=== PATIENT | female | born 1960 | race Caucasian/White ===

== ENCOUNTER 2019-05-30 19:33 | Emergency (ER) | payer OTHER, SELFPAY ==
[2019-05-30 19:38] VITALS: BP 161/103; PULSE 80; RESP 20; TEMP 36.7; O2SAT 98; BMI 45.5
--- NOTE | 2019-05-30 20:40 | ECG_ITS ---
Measurements Intervals [place] Rate: 76 P: 49 AR: 166 QRS: 66 QRSD: 96 T: 63 QT: 373 QTc: 419 SINUS RHYTHM Compared to ECG 11/28/2018 14:46:09 No significant changes Electronically Signed On 05-31-2019 20:22:03 [employer] by Ivet Griffith M.D. [id number]
[2019-05-30 21:30] LABS: Basophils % 0.3 %; Eosinophils # 0.1 10^3/uL (0.0-0.8); Eosinophils % 0.7 %; Hematocrit 43.8 % (37.0-47.0); Hemoglobin 13.8 g/dL (11.5-15.3); Lymphocytes # 2.6 10^3/uL (0.8-4.8); Lymphocytes % 25.5 %; Mean Corpuscular HGB Conc 31.5 g/dL (30.0-36.0); Mean Corpuscular Hemoglobin 29.1 pg (28.0-34.0); Mean Corpuscular Volume 92.2 fL (81-99); Mean Platelet Volume 10.2 fL (7.4-10.4); Monocytes # 0.7 10^3/uL (0.2-0.9); Monocytes % 6.4 %; Neutrophils # 6.8 10^3/uL (1.8-7.7); Neutrophils % 66.8 %; Nucleated Red Blood Cells % 0 %; Platelet Count 313 10^3/cmm (130-400); Red Blood Count 4.75 10^6/uL (4.1-5.3); Red Cell Distribution Width 12.5 % (12.1-15.1); White Blood Count 10.1 10^3/uL (4.0-10.0)
[2019-05-30 21:39] LABS: INR 0.94 (0.8-1.2)
[2019-05-30 21:45] LABS: Alanine Aminotransferase 19 U/L (0-33); Albumin Level 4.5 g/dL (3.5-5.2); Alkaline Phosphatase 91 IU/L (35-105); Anion Gap 15.8 (5-19); Aspartate Amino Transferase 18 U/L (0-32); Blood Urea Nitrogen 24 mg/dL (6-20); Calcium 10.4 mg/Dl (8.6-10.0); Carbon Dioxide 27 mmol/L (22-29); Chloride 98 mmol/L (98-107); Globulin 3.5 g/dL (1.3-4.6); Glomerular Filtration Rate 64.3 mL/min (90-130); Glucose 99 mg/dL (74-109); Lipase 47 U/L (13-60); Potassium 3.8 mmol/L (3.5-5.1); Sodium 137 mmol/L (136-145); Total Bilirubin 0.2 mg/dL (0.15-1.2)
[2019-05-30 21:56] LABS: Troponin(5th) Baseline 13 ng/mL (0-10)
--- NOTE | 2019-05-30 22:16 | ED_ITS ---
HPI - Chest Pain General: Chief Complaint: Chest Pain Stated Complaint: Chest pain Time Seen by Provider: 05/30/19 22:16 History of Present Illness: HPI narrative: Patient is a 51-year-old female comes to the ED with chest pain. She states chest pain started on Wednesday and is just gotten worse. Pain is in the central part of chest and increases in intensity when touched. She's had some mild nausea with chest pain. Patient states she was just recently diagnosed with bronchitis and was given an antibiotic and steroid prescription on Wednesday. Patient said she had some wheezing when she went to the doctor last WednesdayMay 26. Denies shortness of breath, fever, upper respiratory symptoms, abdominal pain, vomiting, dysuria, hematuria, diarrhea, constipation, blood in the stool. Review of Systems General: Reports: 10 or more systems reviewed and unremarkable except in HPI and below PFSH ED PFSH: Statuses (acute, chronic, etc) shown below reflect problem list status as previously entered and may not be historically accurate Social History Smoking and tobacco status: never smoked Physical Exam Const: COMMON NORMALS: oriented x3 HENMT: COMMON NORMALS: normocephalic HEAD & SCALP: normocephalic MOUTH: oral and palatal mucosa normal THROAT: posterior oropharynx normal and uvula midline Neck/C-Spine: COMMON NORMALS: supple GENERAL: Yes normal visual inspection Chest: CHEST: Yes tenderness sternum Resp: COMMON NORMALS: normal respiratory effort, no retractions, no use of accessory muscles and clear to auscultation bilaterally AUSCULTATION: clear to auscultation bilaterally Cardio: COMMON NORMALS: regular rate, regular rhythm, S1 normal heart sound, S2 normal heart sound, no gallops, no clicks, no murmurs and peripheral pulses 2+ throughout RATE: regular rate RHYTHM: regular rhythm HEART SOUNDS: S1 normal and S2 normal PERIPHERAL PULSES: pulses 2+ throughout GI: COMMON NORMALS: normal to inspection, nondistended, normoactive bowel sounds, soft to palpation, non-tender and no masses PALPATION: Yes soft : COMMON NORMALS: Yes no CVA tenderness BLADDER/KIDNEY EXAM: Yes no CVA tenderness Back/Pelvis: COMMON NORMALS: no CVA tenderness Extremity: COMMON NORMALS: normal to inspection Neuro: COMMON NORMALS: oriented x3 and moves all extremities Skin: COMMON NORMALS: no rashes or lesions noted GENERAL SKIN EXAM: no rashes or lesions noted Course ED course: Patient's HEART score is 2. Pt falls in the low score 0-3 range. Vital Signs: Vital signs: Vital Signs Temperature 97.8 F 05/30/19 22:42 Pulse Rate 74 05/31/19 01:06 Respiratory Rate 16 05/31/19 01:06 Blood Pressure 143/79 05/31/19 01:06 Pulse Oximetry 97 05/31/19 01:06 MDM - Chest Pain Lab Data: Attestation: I reviewed the patient's lab results. Labs: Lab Results 05/30/19 05/30/19 05/30/19 Range/Units 21:21 21:21 21:21 WBC 10.1 H (4.0-10.0) 10^3/ uL RBC 4.75 (4.1-5.3) 10^6/u L Hgb 13.8 (11.5-15.3) g/dL Hct 43.8 (37.0-47.0) % MCV 92.2 (81-99) fL MCH 29.1 (28.0-34.0) pg MCHC 31.5 (30.0-36.0) g/dL RDW 12.5 (12.1-15.1) % Plt Count 313 (130-400) 10^3/c mm MPV 10.2 (7.4-10.4) fL Neut % (Auto) 66.8 % Lymph % (Auto) 25.5 % Craven % (Auto) 6.4 % Eos % (Auto) 0.7 % Baso % (Auto) 0.3 % Neut # (Auto) 6.8 (1.8-7.7) 10^3/u L Lymph # (Auto) 2.6 (0.8-4.8) 10^3/u L Craven # (Auto) 0.7 (0.2-0.9) 10^3/u L Eos # (Auto) 0.1 (0.0-0.8) 10^3/u L Baso # (Auto) 0.0 (0.0-0.1) 10^3/u L Nucleated RBC % (a uto) 0 % Nucleated RBCs # 0.0 /100WBC PT 12.80 (10.5-13.3) SECO NDS INR 0.94 (0.8-1.2) Sodium 137 (136-145) mmol/L Potassium 3.8 (3.5-5.1) mmol/L Chloride 98 (98-107) mmol/L Carbon Dioxide 27 (22-29) mmol/L Anion Gap 15.8 (5-19) BUN 24 H (6-20) mg/dL Creatinine 0.9 (0.5-0.9) mg/dL GFR Calculation 64.3 L (90-130) mL/min Glucose 99 (74-109) mg/dL Calcium 10.4 H (8.6-10.0) mg/Dl Total Bilirubin 0.2 (0.15-1.2) mg/dL AST 18 (0-32) U/L ALT 19 (0-33) U/L Alkaline Phosphata se 91 (35-105) IU/L Troponin T Baselin e (0-10) ng/mL Troponin T 120 Min [place] (0-10) ng/mL Delta Troponin T (0-10) ABS# Total Protein 8.0 (6.6-8.7) g/dL Albumin 4.5 (3.5-5.2) g/dL Globulin 3.5 (1.3-4.6) g/dL Lipase 47 (13-60) U/L Urine Color (Yellow) Urine Appearance (CLEAR) Urine pH (5-7) Ur Specific Gravit y (1.005-1.030) Urine Protein (Negative) Urine Glucose (UA) (Normal) Urine Ketones (Negative) Urine Occult Blood (Negative) Urine Nitrate (Negative) Urine Bilirubin (NEGATIVE) Urine Urobilinogen (Negative) mg/dL Ur Leukocyte Jacque ase (Negative) 05/30/19 05/30/19 05/30/19 Range/Units 21:21 22:39 23:00 WBC (4.0-10.0) 10^3/ uL RBC (4.1-5.3) 10^6/u L Hgb (11.5-15.3) g/dL Hct (37.0-47.0) % MCV (81-99) fL MCH (28.0-34.0) pg MCHC (30.0-36.0) g/dL RDW (12.1-15.1) % Plt Count (130-400) 10^3/c mm MPV (7.4-10.4) fL Neut % (Auto) % Lymph % (Auto) % Craven % (Auto) % Eos % (Auto) % Baso % (Auto) % Neut # (Auto) (1.8-7.7) 10^3/u L Lymph # (Auto) (0.8-4.8) 10^3/u L Craven # (Auto) (0.2-0.9) 10^3/u L Eos # (Auto) (0.0-0.8) 10^3/u L Baso # (Auto) (0.0-0.1) 10^3/u L Nucleated RBC % (a uto) % Nucleated RBCs # /100WBC PT (10.5-13.3) SECO NDS INR (0.8-1.2) Sodium (136-145) mmol/L Potassium (3.5-5.1) mmol/L Chloride (98-107) mmol/L Carbon Dioxide (22-29) mmol/L Anion Gap (5-19) BUN (6-20) mg/dL Creatinine (0.5-0.9) mg/dL GFR Calculation (90-130) mL/min Glucose (74-109) mg/dL Calcium (8.6-10.0) mg/Dl Total Bilirubin (0.15-1.2) mg/dL AST (0-32) U/L ALT (0-33) U/L Alkaline Phosphata se (35-105) IU/L Troponin T Baselin e 13 H (0-10) ng/mL Troponin T 120 Min [place] 13.42 H (0-10) ng/mL Delta Troponin T 0.42 (0-10) ABS# Total Protein (6.6-8.7) g/dL Albumin (3.5-5.2) g/dL Globulin (1.3-4.6) g/dL Lipase (13-60) U/L Urine Color Straw (Yellow) Urine Appearance Clear (CLEAR) Urine pH 5 (5-7) Ur Specific Gravit y 1.015 (1.005-1.030) Urine Protein Neg (Negative) Urine Glucose (UA) Norm (Normal) Urine Ketones Negative (Negative) Urine Occult Blood Neg (Negative) Urine Nitrate Negative (Negative) Urine Bilirubin Neg (NEGATIVE) Urine Urobilinogen Norm (Negative) mg/dL Ur Leukocyte Jacque ase Negative (Negative) Imaging Data^: CXR: Attestation: I personally reviewed and interpreted this imaging study as follows: My impression: No acute findings. Pending final radiology report tomorrow. EKG Data^: EKG 1: Attestation: I personally reviewed and interpreted this EKG as follows: EKG interpretation date: 05/30/19 Interpretation: Normal sinus rhythm. 71 bpm, no ST wave elevation or depression. P waves present. Computer generated interpretation: Normal sinus rhythm EKG 2: Attestation: I personally reviewed and interpreted this EKG as follows: EKG interpretation date: 05/30/19 Interpretation: Normal sinus rhythm. 76 bpm, no ST wave elevation or depression. P waves present. Computer generated interpretation: Normal sinus rhythm Discharge Plan Discharge Patient Disposition: Home, Self-Care Clinical Impression: Costalchondritis Condition: Stable Prescriptions: New ibuprofen 600 mg tablet 600 mg PO Q8H Qty: 30 RF: 0 Discharge Orders: Discharge Order (Routine); Ordered 05/31/19 Ordered By: Omar Fernandez Referrals: Iris Bajwa ARNP [Family Provider] - Discharge Diet: Regular Discharge Activity: Increase activity as tolerated Activity Restrictions/Additional Instructions: Follow-up with your primary care doctor in 7 days for reevaluation. Take ibuprofen as prescribed before pain. Apply cold compress to chest to help with symptoms. Drink plenty of fluids, rest and increase activity as tolerated. Discharge Date/Time: 05/31/19 01:08 Coding Level of Care Code ED [employer]metic Sales Assistant for Elleg Norbert
[2019-05-30 22:37] VITALS: BP 178/88; PULSE 89; RESP 18; O2SAT 98
--- NOTE | 2019-05-30 22:40 | ECG_ITS ---
Measurements Intervals [place] Rate: 71 P: 41 AR: 168 QRS: 55 QRSD: 102 T: 62 QT: 395 QTc: 429 SINUS RHYTHM Compared to ECG 11/28/2018 14:46:09 No significant changes Electronically Signed On 05-31-2019 20:32:55 [employer] by Ivet Griffith M.D. [email or web address]
[2019-05-30 22:42] VITALS: TEMP 36.6
[2019-05-30 22:56] LABS: Add Urine Microscopic? NO; Bilirubin Urine Neg (NEGATIVE); Blood Urine Neg (Negative); Glucose Urine UA Norm (Normal); Ketones Urine Negative (Negative); Leukocyte Esterase Urine Negative (Negative); Nitrate Urine Negative (Negative); Protein Urine Neg (Negative); Specific Gravity, Urine 1.015 (1.005-1.030); Urine Appearance Clear (CLEAR); Urine Color Straw (Yellow); Urobilinogen Urine Norm (Negative); pH Urine 5 (5-7)
[2019-05-30 23:00] VITALS: BP 176/68; PULSE 77; RESP 17; O2SAT 97
[2019-05-30] MEDS: sodium chloride 0.9% 500 ML 999 ML IV (23:02)
--- NOTE | 2019-05-30 23:25 | XR_ITS ---
WS: [id number] CHEST XRAY TECHNIQUE: Portable chest. CLINICAL INFORMATION: chest pain COMPARISON: None. FINDINGS: Heart: Normal cardiac silhouette. Lungs: Lungs are clear. No consolidation or pleural effusion. Bones: Chronic left rib fractures with callus formation XR/XR chest 1V portable [id number] IMPRESSION: No acute chest findings
[2019-05-30 23:26] LABS: Troponin 5 2HR 13.42 ng/mL (0-10); Troponin 5 2HR Delta 0.42 ABS# (0-10)
--- NOTE | 2019-05-30 23:40 | PC.NURSE ---
XRAY IN ROOM
[2019-05-31 00:17] VITALS: BP 139/62; PULSE 76; RESP 16; O2SAT 97
[2019-05-31 01:06] VITALS: BP 143/79; PULSE 74; RESP 16; O2SAT 97
== END 2019-05-31 01:08 | disposition home or self-care (01) ==
PROVIDERS: Emergency Medicine; Emergency Provider Physician Assistant; Family Provider Nurse Practitioner Family
DX: M94.0 Chondrocostal junction syndrome [Tietze] (principal)
CPT/HCPCS: 36415; 71045; 80053; 81003; 83690; 84484; 85025; 85610; 93005; 96360; 99283; J7040